=== PATIENT | male | born 1990 | race Caucasian/White ===

== ENCOUNTER 2023-04-08 02:28 | Emergency (ER) | payer OTHER ==
[2023-04-08] MEDS ORDERED: XYLOCAINE 1% HCL 20 ML MDV ONE (02:51)
[2023-04-08] MEDS ORDERED: Adacel Vial IM ONE (03:41)
[2023-04-08] MEDS ORDERED: BACTRIM DS TABLET PO ONE (04:04)
--- NOTE | 2023-04-08 09:16 | XRAY ---
Indication: Foreign body right eye. Comparison: None AP/lateral skull negative for radiopaque foreign body. No bony, articular, or soft tissue abnormalities. Paranasal sinuses are clear.
[2023-04-14 13:40] LABS: Amphetamine,Urine NEGATIVE (NEGATIVE); Barbiturate,Urine NEGATIVE (NEGATIVE); Benzodiazepine,Urine NEGATIVE (NEGATIVE); Cocaine,Urine NEGATIVE (NEGATIVE); Methadone,Urine NEGATIVE (NEGATIVE); Opiate,Urine NEGATIVE (NEGATIVE); PCP,Urine NEGATIVE (NEGATIVE); THC,Urine NEGATIVE (NEGATIVE)
== END 2023-04-08 04:17 | disposition home or self-care (01) ==
LOC: ED 02:28
DX: S01.441A Puncture wound with foreign body of right cheek and temporomandibular area, initial encounter (principal); W20.8XXA Other cause of strike by thrown, projected or falling object, initial encounter; Y92.64 Mine or pit as the place of occurrence of the external cause; Y99.0 Civilian activity done for income or pay; Z23 Encounter for immunization
CPT/HCPCS: 10120; 12011; 70250; 80307; 90471; 90715; 99000; 99284; A9270-GY